=== PATIENT | female | born 1965 | race Caucasian/White ===

== ENCOUNTER 2019-08-13 16:04 | Emergency (ER) | payer MEDICARE, MEDICAID ==
[2019-08-13 17:45] VITALS: BP 130/81
[2019-08-13] MEDS ORDERED: Sulfamethox/Trimethoprim DS 800/160* TAB PO ONE (18:02)
--- NOTE | 2019-08-16 07:15 | UC ---
- Progress Note Progress Note: + E coli on bactrim await sensitivity no change eileenj Course/Dx - Diagnoses Provider Diagnoses: Urinary tract infection Discharge ED - Sign-Out/Discharge Documenting (check all that apply): Post-Discharge Follow Up All imaging exams completed and their final reports reviewed: No Studies - Discharge Plan Condition: Good Disposition: HOME Prescriptions: Sulfamethox/Trimethoprim DS* [Bactrim DS 800/160 TAB*] 1 tab PO BID 5 Days #9 tab Patient Education Materials: Urinary Tract Infection in Older Adults (ED) Referrals: Emir Hercules DO [Primary Care Provider] - Additional Instructions: Encourage increased fluids, take the Bactrim with food, follow-up with your primary care provider if no improvement in 2 or 3 days. Go to the emergency room if you develop any fever, chills, back pain or vomiting and unable keep the medicine down. - Billing Disposition and Condition Condition: GOOD Disposition: Home
--- NOTE | 2019-08-17 17:14 | UC ---
Complaint Female HPI - HPI Summary HPI Summary: 54-year-old female who lives in a alf. She has been incontinent twice a day and usually when she is incontinent she has urinary tract infection. - History Of Current Complaint Chief Complaint: UCGU Stated Complaint: URINARY COMPLAINT Time Seen by Provider: 08/13/19 17:34 Hx Obtained From: Family/Cabin Furnishings Installer ?: No Onset/Duration: Gradual Onset Timing: Intermittent Severity Initially: Mild Severity Currently: Mild Pain Intensity: 0 Pain Scale Used: 0-10 Numeric Aggravating Factor(s): Urination Associated Signs And Symptoms: Positive: Negative - Allergies/Home Medications Allergies/Adverse Reactions: Allergies Allergy/AdvReac Type Severity Reaction Status Date / Time Penicillins Allergy Unknown Verified 08/13/19 17:38 Reaction Details contrast dye Allergy Unknown Unknown Uncoded 08/13/19 17:38 Reaction Details Home Medications: Home Medications Famotidine TAB* [Pepcid 20 MG TAB*] 20 mg PO BID 08/13/19 [History Confirmed 07/21] PMH/Surg Hx/FS Hx/Imm Hx Previously Healthy: Yes - Surgical History Surgical History: Yes Surgery Procedure, Year, and Place: APPENDECTOMY,WISDOM THEETH EXTRACTION - Family History Known Family History: Positive: None, Unknown - unknown - Social History Alcohol Use: None Substance Use Type: None Smoking Status (MU): Never Smoked Tobacco - Immunization History Most Recent Influenza Vaccination: APR 2015 Review of Systems All Other Systems Reviewed And Are Negative: Yes Genitourinary: Positive: Other - Patient was incontinent of urine twice today which makes the staff thinks she may have had a urinary tract infection. Is Patient Immunocompromised?: No Physical Exam Triage Information Reviewed: Yes Completion Of Physical Exam Limited Due To: Altered Mental Status Appearance: Well-Appearing, No Pain Distress, Well-Nourished Vital Signs: Initial Vital Signs Temp 98.9 F 08/13/19 17:39 Pulse 80 08/13/19 17:39 Resp 20 08/13/19 17:39 BP 130/81 08/13/19 17:39 Pulse Ox 100 08/13/19 17:39 Vital Signs Reviewed: Yes Respiratory: Positive: Lungs clear, Normal breath sounds, No respiratory distress, No accessory muscle use Cardiovascular: Positive: RRR, No Murmur, Pulses Normal, Brisk Capillary Refill Abdomen Description: Positive: Nontender, No Organomegaly, Soft. Negative: CVA Tenderness (R), CVA Tenderness (L), Distended, Guarding, Hepatomegaly, Splenomegaly Bowel Sounds: Positive: Present Musculoskeletal Exam: Normal Neurological Exam: Normal Psychological Exam: Normal Skin Exam: Normal Complaint Female Dx - Course Course Of Treatment: Urinalysis: Positive for leukocytes Patient is comfortable here and nontoxic. She is with a caregiver. - Differential Dx/Diagnosis Provider Diagnosis: Urinary tract infection Discharge ED - Sign-Out/Discharge Documenting (check all that apply): Patient Departure All imaging exams completed and their final reports reviewed: No Studies - Discharge Plan Condition: Good Disposition: HOME Prescriptions: Sulfamethox/Trimethoprim DS* [Bactrim DS 800/160 TAB*] 1 tab PO BID 5 Days #9 tab Patient Education Materials: Urinary Tract Infection in Older Adults (ED) Referrals: Emir Hercules DO [Primary Care Provider] - Additional Instructions: Encourage increased fluids, take the Bactrim with food, follow-up with your primary care provider if no improvement in 2 or 3 days. Go to the emergency room if you develop any fever, chills, back pain or vomiting and unable keep the medicine down. - Billing Disposition and Condition Condition: GOOD Disposition: Home
== END 2019-08-13 18:19 | disposition home or self-care (01) ==
LOC: UCCORT 16:04
DX: N39.0 Urinary tract infection, site not specified (principal); B96.20 Unspecified Escherichia coli [E. coli] as the cause of diseases classified elsewhere; R41.82 Altered mental status, unspecified; Z88.0 Allergy status to penicillin; Z91.041 Radiographic dye allergy status
CPT/HCPCS: 81003; 87077; 87086; 87186; 99212; A9270-GY; G0463